=== PATIENT | female | born 1990 | race Caucasian/White ===

== ENCOUNTER 2019-10-14 05:55 | Inpatient (IN) ==
[2019-10-14] MEDS ORDERED: OXYTOCIN 30 UNITS/500 ML BAG IV PRN ×2 (06:40)
[2019-10-14] MEDS ORDERED: miSOPROStoL 50 MCG TAB PO PRN (06:42)
[2019-10-14 07:09] LABS: Hematocrit (blood only) 36.3 % (37-47); Hemoglobin 12.5 g/dL (12.0-16.0); Mean Corpuscular Hemoglobin 31.2 pg (25-34); Mean Corpuscular Volume 90.5 fL (80-100); Mean Platelet Volume 11.3 fL (7.4-10.4); Platelet Count 212 K/uL (130-400); RDW Coefficient of Variation 13.6 % (11.5-14.5); RDW Standard Deviation 45.1 fL (36.4-46.3); Red Blood Count 4.01 M/uL (4.2-5.4)
[2019-10-14 07:10] LABS: Mean Corpuscular Hgb Conc 34.4 g/dL (32-36)
--- NOTE | 2019-10-14 07:12 | History & Physical Report ---
Date of Service October 14, 2019 Assessment & Plan (1) Supervision of normal first : Yasmeen is a 29yo at 39w admitted to labor and delivery with SROM. - cervix not yet dilated; cytotec for cervical ripening - pitocin for contraction augmentation - anesthesia consult placed for epidural - anticipate vaginal delivery History of Present Illness Primary Care Provider: [facility] PCP at 39w 1d dated via LPM. She came to labor and delivery after SROM at 4:30AM today. Sterile speculum exam was performed upon arrival with + nitrazine and + ferning. No complications with this . Only medication is PNV. Has been attending OB appointments. + contractions. + movement. - vaginal bleeding. Labs Blood type: O - Antibody Screen: neg H.5 Hct: 36.3 Plt: 212 Rubella: immune VDRL/RPR: non reactive Gonorrhea: neg Chlamydia: neg GBS: neg HIV: neg HbsAq: neg Glucose Tolerance x2: normal Allergies Allergy/AdvReac Type Severity Reaction Status Date / Time Sulfa (Sulfonamide Allergy Unknown Verified 10/14/19 06:51 Antibiotics) SULFA Allergy Unknown Unknown Uncoded 10/14/19 06:51 Home Medications Home Medications Medication Instructions Recorded Confirmed Type prenat.vits,annika,szt-lnnu-bgufg 1 tab PO DAILY 06/15/19 10/14/19 History ferrous sulfate [iron] 325 mg PO DAILY 10/14/19 10/14/19 History Patient History Medical History Migraine Ovarian cyst Varicella Whooping cough Surgical History S/P tonsillectomy S/P wisdom tooth extraction Family History Grandmother (Paternal) Hypertension Grandmother (Maternal) Osteoporosis Thyroid disease Hudgins disease Mother Breast cancer Social History Preferred Language: Albanian Communication Ability: Effective Advice Nurse Required: No Beliefs That Will Affect Care: None marital status: marital status details: Prashant Bah (39) [phone] Current Living Situation: Spouse Current Living Situation Comment: dog current occupational status: employed 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[facility] [place] Other Information That Helps Us Care for You: No Feels Safe at Home: Yes Safety Concerns: Feels Safe At This Time Smoking Status: Never smoker Hx Alcohol Use: No Hx Substance Use: No Review of Systems no fever, no chills and no sweats no worsening vision no cough and no dyspnea no chest pain, no palpitations and no calf pain no nausea, no vomiting, no constipation and no diarrhea/loose stools no dysuria and no urinary frequency Physical Exam Constitutional: WD/WN, vitals as above Eyes: + anicteric sclerae Neck: normal visual inspection Respiratory: normal respiratory effort, lungs clear to auscultation does not use accessory muscles Auscultation: no crackles, no rales, no wheezes and no pleural rub Cardiovascular: Rate/Rhythm: regular rate and regular rhythm Heart Sounds: normal S1 and normal S2; no gallop, no murmur and no cardiac rub Gastrointestinal (Abdomen): Gravid. Uterus at term; + heart tones; vertex position. EFW 7-8 pounds Neurologic: awake; no focal motor deficits Psychiatric: A+Ox3, euthymic affect Genitourinary: OB Exam Monitor Tracing: + external FHT monitor used Cervical Exam: closed/ 50% effacement/ -2 station, soft and posterior Results & Data Vital Signs (Past 12 Hours) Vital Signs Temp Pulse Resp BP 10/14/19 06:17 36.6 C 90 18 122/84 10/14/19 06:11 36.6 C 90 18 122/84 Monitoring External Monitor Baseline HR: 130 bpm Variability: moderate Accelerations: +2 in in 20 minutes Decelerations: none Category I Tocodynamometer Contractions: occurring every 7-8 min Resident Activity Tracking Resident Involvement: Resident Care Provided Care Provided: OB Delivery
[2019-10-14] MEDS: LACTATED RINGER'S 1,000 ML IV PRN ×3 (08:20→16:39)
--- NOTE | 2019-10-14 11:42 | Labor Progress Brief Note ---
Date of Service October 14, 2019 Subjective Reason For Note: Routine Evaluation Tolerating Contractions Assessment & Plan (1) Premature rupture of membranes: Ready to begin pitocin. Epidural on request. PROM onset of labor timing: onset of labor within 24 hours of rupture PROM gestational age: full term Qualified Code(s): O42.02 - Full-term premature rupture of membranes, onset of labor within 24 hours of rupture Physical Exam Genitourinary: Manual OB Exam: + cervical dilation 1 cm, + cervical effacement 90%, + station -2 and + amniotic fluid clear OB Exam Monitor Tracing: + external FHT monitor used, + external uterine monitor used and + category I Results & Data Vital Signs (Past 12 Hours) Vital Signs Temp Pulse Resp BP 10/14/19 09:55 75 133/86 10/14/19 09:54 98.2 F 18 10/14/19 08:50 18 10/14/19 08:38 78 127/84 10/14/19 08:00 18 10/14/19 07:49 86 112/62 10/14/19 07:47 98.1 F 18 10/14/19 06:17 97.9 F 90 18 122/84 10/14/19 06:11 97.9 F 90 18 122/84 Coding Level of Care Code None Diagnoses Premature rupture of membranes O42.02 PROM onset of labor timing: onset of labor within 24 hours of rupture PROM gestational age: full term
[2019-10-14] MEDS ORDERED: fentaNYL citrate 100 MCG/2 ML VIAL ONE (12:06)
[2019-10-14] MEDS ORDERED: ePHEDrine sulfate 50 MG/ML AMP ONE (12:06)
[2019-10-14] MEDS ORDERED: BUPIVACAINE 0.25% 30 ML VIAL ONE (12:06)
[2019-10-14] MEDS ORDERED: fentaNYL 2MCG/ML ROPIV 1.25MG/ML 100 ML BAG EPI ONE (12:07)
--- NOTE | 2019-10-14 12:22 | Anesthesiology Consultation ---
Date of Service October 14, 2019 Assessment & Plan ASA ASA2 Proposed Anesthesia Anesthesia Type: Labor Epidural Risk / Benefits Reviewed With: PT / POA / Parent / Guardian, Accepts Plan and Informed Consent Obtained History Height/Weight Height: 5 ft 5 in Weight: 85.275 kg Allergies Allergy/AdvReac Type Severity Reaction Status Date / Time Sulfa (Sulfonamide Allergy Unknown Verified 10/14/19 06:51 Antibiotics) SULFA Allergy Unknown Unknown Uncoded 10/14/19 06:51 Medications Home Medications Medication Instructions Recorded Confirmed Last Taken prenat.vits,annika,gjy-yikg-erxhs 1 tab PO DAILY 06/15/19 10/14/19 10/13/19 ferrous sulfate [iron] 325 mg PO DAILY 10/14/19 10/14/19 10/13/19 Active Medications Generic Name Dose Route Start Last Admin Trade Name Freq PRN Reason Stop Dose Admin Lactated Ringer's 1,000 mls @ 125 mls/hr 10/14/19 06:40 10/14/19 11:50 Lr IV 10/16/19 06:39 999 mls/hr .Q8H PRN Infusion L&D Protocol Protocol Oxytocin 30 units in 500 mls @ 1 mls/hr 10/14/19 06:40 10/14/19 11:47 Pitocin IV 10/16/19 06:39 0.06 units/hr .Q24H PRN 1 mls/hr Labor Induction/Augmentation Administration Protocol 0.06 UNITS/HR Misoprostol 50 mcg 10/14/19 06:42 10/14/19 07:38 Cytotec PO 11/13/19 06:44 50 mcg Q4H PRN Administration contractions Past Medical History Medical History Migraine Ovarian cyst Varicella Whooping cough Exercise / Class Metabolic Activity II 4-5 Yardwork/Stairs/Walk up hill Past Family History Family History Grandmother (Paternal) Hypertension Grandmother (Maternal) Osteoporosis Thyroid disease Yoni disease Mother Breast cancer Past Surgical History Surgical History S/P tonsillectomy S/P wisdom tooth extraction Past Anesthesia History No Hx of Anesthesia Complications and No Family Hx of Anesthesia Complications History of PONV No Hx of PONV and No Hx of Motion Sickness Social History Smoking Status: Never smoker Hx Alcohol Use: No Hx Substance Use: No Review of Systems denies fever/cough/ colds/ chest pain/ SOB/ DESTINEE Constitutional: no fever and no chills Respiratory: no cough and no dyspnea denies DESTINEE Cardiovascular: no chest pain and no dyspnea on exertion Physical Exam Vital Signs Last Vital Signs Temp 36.8 C 10/14/19 09:54 Pulse 78 10/14/19 11:50 Resp 18 10/14/19 09:54 BP 117/70 10/14/19 11:50 ENMT Mouth: no TMJ abnormality and no dentition abnormality Thyromental Distance: > or= 3.5 Finger Breadths Mallampati Class: II Neck neck extension not limited Respiratory normal respiratory effort; no respiratory distress Auscultation: lungs clear to auscultation bilaterally Cardiovascular Rate/Rhythm: regular rate and regular rhythm Neurologic moves all extremities Psychiatric Orientation: alert and oriented x 3 Testing Laboratory Results 10/14/19 06:59
--- NOTE | 2019-10-14 13:48 | Labor Progress Brief Note ---
Date of Service October 14, 2019 Subjective Reason For Note: Routine Evaluation Comfortable with Epidural Assessment & Plan (1) Premature rupture of membranes: Comfortable with epidural. Contractions still Q3 at times, and irregular, so no exam currently as it would not casino change attendant. Continue titrating pitocin to Q2min. PROM onset of labor timing: onset of labor within 24 hours of rupture PROM gestational age: full term Qualified Code(s): O42.02 - Full-term premature rupture of membranes, onset of labor within 24 hours of rupture Physical Exam Genitourinary: OB Exam Monitor Tracing: + external uterine monitor used and + category I Results & Data Vital Signs (Past 12 Hours) Vital Signs Temp Pulse Resp BP Pulse Ox 10/14/19 13:46 74 100 10/14/19 13:41 75 100 10/14/19 13:36 72 100 10/14/19 13:33 62 109/66 10/14/19 13:31 75 100 10/14/19 13:26 78 100 10/14/19 13:21 83 99 10/14/19 13:17 68 103/66 10/14/19 13:16 73 99 10/14/19 13:12 80 107/65 10/14/19 13:11 74 99 10/14/19 13:08 68 97/59 L 10/14/19 13:06 70 96 10/14/19 13:05 18 10/14/19 13:01 75 116/56 L 99 10/14/19 13:00 70 18 106/52 L 10/14/19 12:58 73 114/53 L 10/14/19 12:56 72 107/51 L 99 10/14/19 12:55 18 10/14/19 12:54 107 H 133/79 10/14/19 12:52 76 117/71 10/14/19 12:51 78 18 100 10/14/19 12:49 63 18 104/51 L 10/14/19 12:47 77 18 112/51 L 10/14/19 12:46 67 100 10/14/19 12:45 64 110/57 L 10/14/19 12:42 97 H 107/75 10/14/19 12:41 88 100 10/14/19 12:40 105 H 162/82 H 10/14/19 12:36 71 100 10/14/19 12:34 69 122/82 10/14/19 12:31 83 100 10/14/19 12:26 74 100 10/14/19 12:21 77 100 10/14/19 11:50 78 117/70 10/14/19 09:55 75 133/86 10/14/19 09:54 98.2 F 18 10/14/19 08:50 18 10/14/19 08:38 78 127/84 10/14/19 08:00 18 10/14/19 07:49 86 112/62 10/14/19 07:47 98.1 F 18 10/14/19 06:17 97.9 F 90 18 122/84 10/14/19 06:11 97.9 F 90 18 122/84 Coding Level of Care Code None Diagnoses Premature rupture of membranes O42.02 PROM onset of labor timing: onset of labor within 24 hours of rupture PROM gestational age: full term
[2019-10-14] MEDS ORDERED: fentaNYL 2MCG/ML ROPIV 1.25MG/ML 100 ML BAG EPI PRN (13:56)
[2019-10-14] MEDS ORDERED: ONDANSETRON INJ 2 MG/ML 2 ML VIAL IV PRN (13:56)
[2019-10-14] MEDS ORDERED: NALBUPHINE HCL INJ 10 MG/ML AMP IV PRN (13:56)
[2019-10-14] MEDS ORDERED: DiphenhydrAMINE HCL 50 MG/ML VIAL IV PRN (13:56)
[2019-10-14] MEDS ORDERED: NALOXONE HCL 1 MG in SODIUM CHLORIDE 0.9% 1000ML 1,000 ML IV PRN (13:56)
[2019-10-14] MEDS ORDERED: NALOXONE HCL 0.4 MG/1 ML VIAL/CARP IV PRN (13:56)
[2019-10-14] MEDS ORDERED: ePHEDrine sulfate 50 MG/ML AMP IV PRN (13:56)
[2019-10-14] MEDS ORDERED: ACETAMINOPHEN 325 MG TAB PO STA (16:58)
--- NOTE | 2019-10-14 18:07 | Labor Progress Brief Note ---
Date of Service October 14, 2019 Subjective Comfortable with Epidural Physical Exam Genitourinary: Manual OB Exam: + cervical dilation 3 cm, + cervical effacement 90%, + station -2 and + amniotic fluid clear OB Exam Monitor Tracing: + external FHT monitor used, + external uterine monitor used and + category I Results & Data Vital Signs (Past 12 Hours) Vital Signs Temp Pulse Resp BP Pulse Ox 10/14/19 18:04 69 107/70 10/14/19 18:01 65 100 10/14/19 17:56 79 100 10/14/19 17:51 76 100 10/14/19 17:46 70 100 10/14/19 17:41 72 100 10/14/19 17:36 74 100 10/14/19 17:32 71 116/79 10/14/19 17:31 81 100 10/14/19 17:26 82 100 10/14/19 17:21 75 100 10/14/19 17:18 81 121/65 10/14/19 17:16 91 H 100 10/14/19 17:11 84 100 10/14/19 17:06 70 100 10/14/19 17:03 82 98/68 L 10/14/19 17:01 78 100 10/14/19 16:56 87 100 10/14/19 16:51 92 H 89 L 10/14/19 16:48 77 113/69 10/14/19 16:46 74 100 10/14/19 16:41 71 100 10/14/19 16:36 69 100 10/14/19 16:33 68 105/67 10/14/19 16:31 81 100 10/14/19 16:30 18 10/14/19 16:26 73 100 10/14/19 16:21 87 100 10/14/19 16:17 86 100/68 10/14/19 16:16 82 100 10/14/19 16:11 81 100 10/14/19 16:06 79 100 10/14/19 16:04 96 H 111/60 10/14/19 16:01 98 H 97 10/14/19 16:00 98.2 F 18 10/14/19 15:56 76 100 10/14/19 15:51 85 99 10/14/19 15:47 76 97/59 L 10/14/19 15:46 73 99 10/14/19 15:41 71 100 10/14/19 15:36 72 100 10/14/19 15:32 75 92/56 L 10/14/19 15:31 72 100 10/14/19 15:30 18 10/14/19 15:26 72 100 10/14/19 15:21 69 100 10/14/19 15:17 71 94/59 L 10/14/19 15:16 73 100 10/14/19 15:11 69 100 10/14/19 15:06 73 100 10/14/19 15:04 68 92/55 L 10/14/19 15:01 70 100 10/14/19 15:00 18 10/14/19 14:56 69 100 10/14/19 14:51 70 100 10/14/19 14:49 67 97/56 L 10/14/19 14:46 71 100 10/14/19 14:41 71 100 10/14/19 14:36 68 100 10/14/19 14:32 73 94/58 L 10/14/19 14:31 83 100 10/14/19 14:30 18 10/14/19 14:26 72 100 10/14/19 14:21 89 100 10/14/19 14:18 73 105/71 10/14/19 14:16 79 100 10/14/19 14:11 74 100 10/14/19 14:06 73 100 10/14/19 14:03 75 111/76 10/14/19 14:01 76 100 10/14/19 14:00 18 10/14/19 13:56 78 100 10/14/19 13:51 78 100 10/14/19 13:49 78 109/72 10/14/19 13:46 74 100 10/14/19 13:41 75 100 10/14/19 13:36 72 100 10/14/19 13:33 62 109/66 10/14/19 13:31 75 100 10/14/19 13:30 18 10/14/19 13:26 78 100 10/14/19 13:21 83 99 10/14/19 13:17 68 103/66 10/14/19 13:16 73 99 10/14/19 13:12 80 107/65 10/14/19 13:11 74 99 10/14/19 13:08 68 97/59 L 10/14/19 13:06 70 96 10/14/19 13:05 18 10/14/19 13:01 75 116/56 L 99 10/14/19 13:00 70 18 106/52 L 10/14/19 12:58 73 114/53 L 10/14/19 12:56 72 107/51 L 99 10/14/19 12:55 18 10/14/19 12:54 107 H 133/79 10/14/19 12:52 76 117/71 10/14/19 12:51 78 18 100 10/14/19 12:49 63 18 104/51 L 10/14/19 12:47 77 18 112/51 L 10/14/19 12:46 67 100 10/14/19 12:45 64 110/57 L 10/14/19 12:42 97 H 107/75 10/14/19 12:41 88 100 10/14/19 12:40 105 H 162/82 H 10/14/19 12:36 71 100 10/14/19 12:34 69 122/82 10/14/19 12:31 83 100 10/14/19 12:26 74 100 10/14/19 12:21 77 100 10/14/19 11:50 78 117/70 10/14/19 09:55 75 133/86 10/14/19 09:54 98.2 F 18 10/14/19 08:50 18 10/14/19 08:38 78 127/84 10/14/19 08:00 18 10/14/19 07:49 86 112/62 10/14/19 07:47 98.1 F 18 10/14/19 06:17 97.9 F 90 18 122/84 10/14/19 06:11 97.9 F 90 18 122/84 Coding Level of Care Code None
[2019-10-14] MEDS ORDERED: ROPIVACAINE 0.5% 5 MG/ML 30 ML VIAL ONE (18:32)
--- NOTE | 2019-10-14 19:41 | Anesthesiology Progress Note ---
Date of Service October 14, 2019 Subjective pt c/o pressure pain. 3/10. 5ml .5% ropivicaine bolus. pt comfortable Physical Exam Vital Signs: Last Vital Signs Temp 36.8 C 10/14/19 19:08 Pulse 79 10/14/19 19:36 Resp 18 10/14/19 19:08 BP 108/53 L 10/14/19 19:32 Pulse Ox 99 10/14/19 19:36 Results & Data Medications Administered Diphenhydramine HCl (Benadryl) 25 mg IV Q6H PRN PRN Reason: Itching Stop: 10/15/19 13:55 Last Admin: 10/14/19 14:18 Dose: 25 mg Documented by: Chandan Lactated Ringer's (Lr) 1,000 mls @ 125 mls/hr IV .Q8H PRN; Protocol PRN Reason: L&D Protocol Stop: 10/16/19 06:39 Last Admin: 10/14/19 16:39 Dose: 125 mls/hr Documented by: [id number] Infusion: 10/14/19 16:39 Dose: 0 mls/hr Documented by: [id number] Infusion: 10/14/19 13:10 Dose: 125 mls/hr Documented by: [id number] Infusion: 10/14/19 12:47 Dose: 999 mls/hr Documented by: [id number] Admin: 10/14/19 12:31 Dose: 125 mls/hr Documented by: [id number] Infusion: 10/14/19 12:30 Dose: 0 mls/hr Documented by: [id number] Infusion: 10/14/19 11:50 Dose: 999 mls/hr Documented by: [id number] Infusion: 10/14/19 11:40 Dose: 125 mls/hr Documented by: [id number] Infusion: 10/14/19 08:55 Dose: 0 mls/hr Documented by: [id number] Infusion: 10/14/19 08:38 Dose: 999 mls/hr Documented by: [id number] Admin: 10/14/19 08:20 Dose: 125 mls/hr Documented by: [id number] Oxytocin (Pitocin) 30 units in 500 mls @ 15 mls/hr IV .Q24H PRN; Protocol PRN Reason: Labor Induction/Augmentation Stop: 10/16/19 06:39 Last Titration: 10/14/19 18:35 Dose: 0.9 units/hr, 15 mls/hr Documented by: [id number] Titration: 10/14/19 18:02 Dose: 0.78 units/hr, 13 mls/hr Documented by: [id number] Titration: 10/14/19 15:45 Dose: 0.66 units/hr, 11 mls/hr Documented by: [id number] Titration: 10/14/19 15:05 Dose: 0.54 units/hr, 9 mls/hr Documented by: [id number] Titration: 10/14/19 14:34 Dose: 0.42 units/hr, 7 mls/hr Documented by: [id number] Titration: 10/14/19 14:02 Dose: 0.3 units/hr, 5 mls/hr Documented by: [id number] Titration: 10/14/19 13:16 Dose: 0.18 units/hr, 3 mls/hr Documented by: [id number] Admin: 10/14/19 11:47 Dose: 0.06 units/hr, 1 mls/hr Documented by: [id number] Cosigned by: [id number] Misoprostol (Cytotec) 50 mcg PO Q4H PRN PRN Reason: contractions Stop: 11/13/19 06:44 Last Admin: 10/14/19 07:38 Dose: 50 mcg Documented by: [id number] Nalbuphine HCl (Nubain) 5 mg IV Q10M PRN PRN Reason: itching or nausea Stop: 10/15/19 13:55 Last Admin: 10/14/19 17:17 Dose: 5 mg Documented by: [id number] Ropivacaine (Epidural (L&D)) 100 ml EPI PRN PRN; Protocol PRN Reason: Pain R/T Labor Stop: 10/15/19 13:55 Last Admin: 10/14/19 18:54 Dose: 100 ml Documented by: [id number] Cosigned by: [id number]
[2019-10-14] MEDS ORDERED: ACETAMINOPHEN 325 MG TAB PO PRN (21:40)
--- NOTE | 2019-10-14 23:10 | Labor Progress Brief Note ---
Date of Service October 14, 2019 Subjective Comfortable with Epidural Assessment & Plan (1) Premature rupture of membranes: Begin second stage. PROM onset of labor timing: onset of labor within 24 hours of rupture PROM gestational age: full term Qualified Code(s): O42.02 - Full-term premature rupture of membranes, onset of labor within 24 hours of rupture Physical Exam Genitourinary: Manual OB Exam: + cervical dilation 10 cm, + cervical effacement 100%, + station + 1 and + amniotic fluid clear OB Exam Monitor Tracing: + external uterine monitor used and + category I Results & Data Vital Signs (Past 12 Hours) Vital Signs Temp Pulse Resp BP Pulse Ox 10/14/19 23:06 88 100 10/14/19 23:03 94 H 116/77 10/14/19 23:01 89 100 10/14/19 22:56 84 100 10/14/19 22:51 91 H 100 10/14/19 22:49 97.9 F 85 18 109/75 10/14/19 22:46 79 100 10/14/19 22:41 88 100 10/14/19 22:36 93 H 99 10/14/19 22:33 103 H 100/67 10/14/19 22:31 82 100 10/14/19 22:26 93 H 100 10/14/19 22:21 78 100 10/14/19 22:18 85 104/72 10/14/19 22:16 84 100 10/14/19 22:11 89 100 10/14/19 22:06 94 H 100 10/14/19 22:05 88 90/67 L 10/14/19 22:04 88 89/54 L 10/14/19 22:03 77 20 109/71 10/14/19 22:01 85 100 10/14/19 21:56 99 H 100 10/14/19 21:51 97 H 100 10/14/19 21:48 84 112/71 10/14/19 21:46 91 H 100 10/14/19 21:41 88 100 10/14/19 21:36 93 H 100 10/14/19 21:34 78 113/70 10/14/19 21:31 91 H 100 10/14/19 21:26 84 100 10/14/19 21:21 86 100 10/14/19 21:18 83 113/64 10/14/19 21:16 85 99 01/31/20 21:11 91 H 100 10/14/19 21:06 83 100 10/14/19 21:01 98.4 F 84 20 100 10/14/19 20:56 88 100 10/14/19 20:51 85 98 10/14/19 20:48 79 96/59 L 10/14/19 20:46 76 99 10/14/19 20:41 75 98 10/14/19 20:36 72 99 10/14/19 20:33 102 H 97/55 L 10/14/19 20:31 84 97 10/14/19 20:26 78 99 10/14/19 20:21 76 98 10/14/19 20:19 71 98/56 L 10/14/19 20:16 73 98 10/14/19 20:11 76 98 10/14/19 20:06 70 98 10/14/19 20:04 71 18 97/54 L 10/14/19 20:01 71 98 10/14/19 19:56 74 98 10/14/19 19:51 76 98 10/14/19 19:49 72 98/55 L 10/14/19 19:46 74 98 10/14/19 19:41 74 98 10/14/19 19:36 79 99 10/14/19 19:32 83 108/53 L 10/14/19 19:31 88 100 10/14/19 19:27 72 114/65 10/14/19 19:26 72 100 10/14/19 19:23 67 107/60 10/14/19 19:21 79 99 10/14/19 19:17 80 103/67 10/14/19 19:16 80 99 10/14/19 19:12 72 102/64 10/14/19 19:11 67 100 10/14/19 19:08 98.2 F 70 18 104/61 10/14/19 19:06 74 100 10/14/19 19:02 81 105/64 10/14/19 19:01 79 100 10/14/19 19:00 18 10/14/19 18:57 74 108/72 10/14/19 18:56 75 99 10/14/19 18:53 78 116/65 10/14/19 18:51 76 98 10/14/19 18:46 66 104/65 99 10/14/19 18:44 65 106/67 10/14/19 18:42 68 106/67 10/14/19 18:41 68 99 10/14/19 18:40 86 111/72 10/14/19 18:38 67 106/67 10/14/19 18:36 80 99 10/14/19 18:33 72 107/64 10/14/19 18:31 78 99 10/14/19 18:26 71 99 10/14/19 18:21 66 99 10/14/19 18:18 77 110/65 10/14/19 18:16 72 99 10/14/19 18:11 64 100 10/14/19 18:06 84 100 10/14/19 18:04 69 107/70 10/14/19 18:01 65 100 10/14/19 18:00 18 10/14/19 17:56 79 100 10/14/19 17:51 76 100 10/14/19 17:46 70 100 10/14/19 17:41 72 100 10/14/19 17:36 74 100 10/14/19 17:32 71 116/79 10/14/19 17:31 81 100 10/14/19 17:30 18 10/14/19 17:26 82 100 10/14/19 17:21 75 100 10/14/19 17:18 81 121/65 10/14/19 17:16 91 H 100 10/14/19 17:11 84 100 10/14/19 17:06 70 100 10/14/19 17:03 82 98/68 L 10/14/19 17:01 78 100 10/14/19 17:00 18 10/14/19 16:56 87 100 10/14/19 16:51 92 H 89 L 10/14/19 16:48 77 113/69 10/14/19 16:46 74 100 10/14/19 16:41 71 100 10/14/19 16:36 69 100 10/14/19 16:33 68 105/67 10/14/19 16:31 81 100 10/14/19 16:30 18 10/14/19 16:26 73 100 10/14/19 16:21 87 100 10/14/19 16:17 86 100/68 10/14/19 16:16 82 100 10/14/19 16:11 81 100 10/14/19 16:06 79 100 10/14/19 16:04 96 H 111/60 10/14/19 16:01 98 H 97 10/14/19 16:00 98.2 F 18 10/14/19 15:56 76 100 10/14/19 15:51 85 99 10/14/19 15:47 76 97/59 L 10/14/19 15:46 73 99 10/14/19 15:41 71 100 10/14/19 15:36 72 100 10/14/19 15:32 75 92/56 L 10/14/19 15:31 72 100 10/14/19 15:30 18 10/14/19 15:26 72 100 10/14/19 15:21 69 100 10/14/19 15:17 71 94/59 L 10/14/19 15:16 73 100 10/14/19 15:11 69 100 10/14/19 15:06 73 100 10/14/19 15:04 68 92/55 L 10/14/19 15:01 70 100 10/14/19 15:00 18 10/14/19 14:56 69 100 10/14/19 14:51 70 100 10/14/19 14:49 67 97/56 L 10/14/19 14:46 71 100 10/14/19 14:41 71 100 10/14/19 14:36 68 100 10/14/19 14:32 73 94/58 L 10/14/19 14:31 83 100 10/14/19 14:30 18 10/14/19 14:26 72 100 10/14/19 14:21 89 100 10/14/19 14:18 73 105/71 10/14/19 14:16 79 100 10/14/19 14:11 74 100 10/14/19 14:06 73 100 10/14/19 14:03 75 111/76 10/14/19 14:01 76 100 10/14/19 14:00 18 10/14/19 13:56 78 100 10/14/19 13:51 78 100 10/14/19 13:49 78 109/72 10/14/19 13:46 74 100 10/14/19 13:41 75 100 10/14/19 13:36 72 100 10/14/19 13:33 62 109/66 10/14/19 13:31 75 100 10/14/19 13:30 18 10/14/19 13:26 78 100 10/14/19 13:21 83 99 10/14/19 13:17 68 103/66 10/14/19 13:16 73 99 10/14/19 13:12 80 107/65 10/14/19 13:11 74 99 10/14/19 13:08 68 97/59 L 10/14/19 13:06 70 96 10/14/19 13:05 18 10/14/19 13:01 75 116/56 L 99 10/14/19 13:00 70 18 106/52 L 10/14/19 12:58 73 114/53 L 10/14/19 12:56 72 107/51 L 99 10/14/19 12:55 18 10/14/19 12:54 107 H 133/79 10/14/19 12:52 76 117/71 10/14/19 12:51 78 18 100 10/14/19 12:49 63 18 104/51 L 10/14/19 12:47 77 18 112/51 L 10/14/19 12:46 67 100 10/14/19 12:45 64 110/57 L 10/14/19 12:42 97 H 107/75 10/14/19 12:41 88 100 10/14/19 12:40 105 H 162/82 H 10/14/19 12:36 71 100 10/14/19 12:34 69 122/82 10/14/19 12:31 83 100 10/14/19 12:26 74 100 10/14/19 12:21 77 100 10/14/19 11:50 78 117/70 Coding Level of Care Code None Diagnoses Premature rupture of membranes O42.02 PROM onset of labor timing: onset of labor within 24 hours of rupture PROM gestational age: full term
--- NOTE | 2019-10-15 00:22 | Delivery Summary ---
Vaginal Delivery Summary Date of Service October 15, 2019 Vaginal Delivery Summary DIAGNOSES: 1. Fortune intrauterine at 39w6d gestation. 2. PROM, IOL. 3. Group B Streptococcus Neg. PROCEDURE: Spontaneous vaginal delivery and repair of second degree laceration. SURGEON: Rosa Bedoya MD. FIELD SERVICES MANAGER: None. ESTIMATED BLOOD LOSS: 300 mL. COMPLICATIONS: None. PLACENTA: Spontaneous and intact with a 3-vessel cord. DISPOSITION: Stable to labor and delivery. DESCRIPTION: The patient pushed well and brought the head to in OA position. The 's head was allowed to deliver with contraction force and no further active pushing, with the perineum protected during this time. A double nuchal cord was reduced. The shoulders were slow to deliver, therefore [place] and Suprapubic Pressure from the posterior aspect of the shoulder were employed. The left shoulder was anterior. The shoulders and body then delivered, and the was placed on the maternal abdomen. The cord was doubly clamped by the MD and then cut by the FOB. The was taken to the warmer for resuscitation where cries were promptly heard, and infant was noted to move both arms spontaneously. The placenta delivered spontaneously and was noted to be intact and with a 3VC. The cervix, vagina and perineum were examined and were found to have a second degree perineal laceration which was repaired with vicryl in the usual manner, including crown sutures to rebuild the perineal body. The fundus was firm and lochia minimal immediately after delivery.
[2019-10-15] MEDS ORDERED: HYDROCORTISONE ACETATE 25 MG SUPP PR PRN (00:26)
[2019-10-15] MEDS ORDERED: BENZOCAINE 20% AER SPR 82.5 GM CAN EXT PRN (00:26)
[2019-10-15] MEDS ORDERED: SUPERCREAM 0.870% 15 GM JAR EXT PRN (00:26)
[2019-10-15] MEDS ORDERED: DIPHTHERIA/TETANUS/PERTUSSIS 0.5 ML SYR/VIAL IM ONE (00:26)
[2019-10-15] MEDS ORDERED: LACTATED RINGER'S 1,000 ML IV SCH (00:30)
[2019-10-15] MEDS: IBUPROFEN 600 MG TAB PO PRN ×5 (00:45→21:04)
--- NOTE | 2019-10-15 06:13 | Obstetrical Progress Note ---
Date of Service October 15, 2019 Assessment & Plan (1) Status post vaginal delivery: Yasmeen is a 29 yo at PPD 1 after at 39w - GBS -, Blood Type O-, Rubella immune - baby's blood type A+; will order Rhogam - continue self-void trials, straight cath as needed - Vitals reviewed and WNL Patient recovering normally. - After discharge will have [address] Bedoya. Supervising Physician Co-Signing Physician Notes I have reviewed the resident's note and examined the patient myself, and agree with the note above. Subjective Ambulation: ambulating normally Voiding: difficulty with voiding, required straight cath Passing Gas:: Yes Diet Tolerance:: regular diet Lochia:: moderate Feeding Type:: breast feeding Review of Systems Constitutional: no fever, no chills and no sweats Eyes: no worsening vision Respiratory: no cough and no dyspnea Cardiovascular: no chest pain, no palpitations, no edema and no calf pain Gastrointestinal: no nausea and no vomiting Genitourinary: no dysuria and no urinary frequency Neurologic: no headache(s) Physical Exam Constitutional: WD/WN, vitals as above no acute distress Respiratory: normal respiratory effort, lungs clear to auscultation does not use accessory muscles Auscultation: no crackles, no rales, no rhonchi, no wheezes and no pleural rub Cardiovascular: Rate/Rhythm: regular rate and regular rhythm Heart Sounds: normal S1 and normal S2; no gallop, no murmur and no cardiac rub Extremities: no calf tenderness and no pedal edema Gastrointestinal (Abdomen): Inspection/Auscultation: normal bowel sounds; abdomen not distended Percussion/Palpation: abdomen soft Genitourinary: Uterus: fundus firm, palpable 1 cm below the umbilicus Results & Data Vital Signs (Past 12 Hours) Vital Signs Temp Pulse Pulse Resp BP BP Pulse Ox 10/15/19 03:30 36.6 C 80 18 101/57 L 10/15/19 02:06 88 18 110/58 L 10/15/19 01:35 86 18 107/53 L 10/15/19 01:18 82 107/59 L 10/15/19 01:03 84 18 110/55 L 10/15/19 00:48 90 18 123/63 10/15/19 00:38 96 H 18 120/64 10/15/19 00:18 99 H 18 115/61 10/15/19 00:06 98 H 99 10/15/19 00:03 97 H 18 105/54 L 10/15/19 00:01 102 H 99 10/14/19 23:56 109 H 99 10/14/19 23:51 114 H 98 10/14/19 23:46 129 H 99 10/14/19 23:41 105 H 91 10/14/19 23:39 109 H 92 10/14/19 23:36 109 H 99 10/14/19 23:35 93 H 121/60 10/14/19 23:31 120 H 93 10/14/19 23:27 98 H 89 L 10/14/19 23:26 98 H 100 10/14/19 23:21 114 H 100 10/14/19 23:19 102 H 132/70 10/14/19 23:16 89 99 10/14/19 23:11 88 100 10/14/19 23:06 88 100 10/14/19 23:03 94 H 116/77 10/14/19 23:01 89 100 10/14/19 22:56 84 100 10/14/19 22:51 91 H 100 10/14/19 22:49 36.6 C 85 18 109/75 10/14/19 22:46 79 100 10/14/19 22:41 88 100 10/14/19 22:36 93 H 99 10/14/19 22:33 103 H 100/67 10/14/19 22:31 82 100 10/14/19 22:26 93 H 100 10/14/19 22:21 78 100 10/14/19 22:18 85 104/72 10/14/19 22:16 84 100 10/14/19 22:11 89 100 10/14/19 22:06 94 H 100 10/14/19 22:05 88 90/67 L 10/14/19 22:04 88 89/54 L 10/14/19 22:03 77 20 109/71 10/14/19 22:01 85 100 10/14/19 21:56 99 H 100 10/14/19 21:51 97 H 100 10/14/19 21:48 84 112/71 10/14/19 21:46 91 H 100 10/14/19 21:41 88 100 10/14/19 21:36 93 H 100 10/14/19 21:34 78 113/70 10/14/19 21:31 91 H 100 10/14/19 21:26 84 100 10/14/19 21:21 86 100 10/14/19 21:18 83 113/64 10/14/19 21:16 85 99 10/14/19 21:11 91 H 100 10/14/19 21:06 83 100 10/14/19 21:01 36.9 C 84 20 100 10/14/19 20:56 88 100 10/14/19 20:51 85 98 10/14/19 20:48 79 96/59 L 10/14/19 20:46 76 99 10/14/19 20:41 75 98 10/14/19 20:36 72 99 10/14/19 20:33 102 H 97/55 L 10/14/19 20:31 84 97 10/14/19 20:26 78 99 10/14/19 20:21 76 98 10/14/19 20:19 71 98/56 L 10/14/19 20:16 73 98 10/14/19 20:11 76 98 10/14/19 20:06 70 98 10/14/19 20:04 71 18 97/54 L 10/14/19 20:01 71 98 10/14/19 19:56 74 98 10/14/19 19:51 76 98 10/14/19 19:49 72 98/55 L 10/14/19 19:46 74 98 10/14/19 19:41 74 98 10/14/19 19:36 79 99 10/14/19 19:32 83 108/53 L 10/14/19 19:31 88 100 10/14/19 19:27 72 114/65 10/14/19 19:26 72 100 10/14/19 19:23 67 107/60 10/14/19 19:21 79 99 10/14/19 19:17 80 103/67 10/14/19 19:16 80 99 10/14/19 19:12 72 102/64 10/14/19 19:11 67 100 10/14/19 19:08 36.8 C 70 18 104/61 10/14/19 19:06 74 100 10/14/19 19:02 81 105/64 10/14/19 19:01 79 100 10/14/19 19:00 18 10/14/19 18:57 74 108/72 10/14/19 18:56 75 99 10/14/19 18:53 78 116/65 10/14/19 18:51 76 98 10/14/19 18:46 66 104/65 99 10/14/19 18:44 65 106/67 10/14/19 18:42 68 106/67 10/14/19 18:41 68 99 10/14/19 18:40 86 111/72 10/14/19 18:38 67 106/67 10/14/19 18:36 80 99 10/14/19 18:33 72 107/64 10/14/19 18:31 78 99 10/14/19 18:26 71 99 10/14/19 18:21 66 99 10/14/19 18:18 77 110/65 10/14/19 18:16 72 99 Resident Activity Tracking Resident Involvement: Resident Care Provided Care Provided: OB Delivery
--- NOTE | 2019-10-15 08:30 | Anesthesia Procedure Note ---
Date of Service October 15, 2019 Anesthesia Post Epidural Note Vital Signs Vital Signs: Temp Pulse Resp BP Pulse Ox 36.6 C 80 18 101/57 L 99 10/15/19 03:30 10/15/19 03:30 10/15/19 03:30 10/15/19 03:30 10/15/19 00:06 Pain Intensity Lower Abdomen: Pain Intensity: 0 Notes Mental Status: alert / awake / arousable Patient Amnestic to Procedure: Yes Nausea / Vomiting: adequately controlled Pain: adequately controlled Airway Patency, RR, SpO2: stable & adequate BP & HR: stable & adequate Hydration State: stable & adequate Neuraxial Anesthesia: sensory block resolved Anesthetic Complications: no major complications apparent and Pt Satisfied with anesthetic care Epidural: Removed without complications and With tip intact
[2019-10-15] MEDS: PRENATAL VITAMIN 1 TAB PO SCH (08:31)
[2019-10-15] MEDS: DOCUSATE SODIUM 100 MG CAP PO SCH ×2 (08:31→21:04)
[2019-10-15] MEDS: ACETAMINOPHEN 325 MG TAB PO PRN ×2 (08:32→17:40)
[2019-10-15] MEDS: OXYCODONE/ACETAMINOPHEN 5mg/325mg TAB PO PRN (23:18)
[2019-10-16] MEDS: OXYCODONE/ACETAMINOPHEN 5mg/325mg TAB PO PRN ×2 (05:35→14:39)
[2019-10-16 06:31] LABS: Hematocrit (blood only) 30.2 % (37-47); Hemoglobin 10.2 g/dL (12.0-16.0); Mean Corpuscular Hemoglobin 30.9 pg (25-34); Mean Corpuscular Hgb Conc 33.8 g/dL (32-36); Mean Corpuscular Volume 91.5 fL (80-100); Mean Platelet Volume 11.2 fL (7.4-10.4); Platelet Count 197 K/uL (130-400); RDW Standard Deviation 46.6 fL (36.4-46.3); White Blood Count 12.44 K/uL (4.8-10.8)
[2019-10-16] MEDS: DOCUSATE SODIUM 100 MG CAP PO SCH (08:40)
[2019-10-16] MEDS: PRENATAL VITAMIN 1 TAB PO SCH (08:40)
[2019-10-16] MEDS: IBUPROFEN 600 MG TAB PO PRN (08:43)
--- NOTE | 2019-10-16 10:02 | Obstetrical Progress Note ---
Date of Service October 16, 2019 Assessment & Plan (1) Status post vaginal delivery: stable, ready for d/c home, needs rhogam. breast feeding. instructions reviewed. f/u 6 wk pp check. Day #:: 2 Subjective Ambulation: ambulating normally Voiding: no voiding problems Diet Tolerance:: regular diet Lochia:: Small Feeding Type:: breast feeding reviewed hemorrhoid care. feeding. still needs rhogam eval and rhogam as baby rh positive. Physical Exam Constitutional WD/WN, vitals as above Respiratory normal respiratory effort, lungs clear to auscultation Cardiovascular Rate/Rhythm: regular rate and regular rhythm Gastrointestinal (Abdomen) Inspection/Auscultation: abdomen normal to inspection Percussion/Palpation: abdomen soft fundus firm 2 cm below umbilicus Musculoskeletal nt calves Neurologic grossly normal Psychiatric A+Ox3, euthymic affect Results & Data Vital Signs (Past 12 Hours) Vital Signs Temp Pulse Resp BP Pulse Ox 10/16/19 07:30 97.9 F 64 18 106/70 98 10/15/19 23:20 97.2 F L 75 15 116/77 97
== END 2019-10-16 15:40 | disposition home or self-care (01) | DRG 807 ==
LOC: OPB 05:55 → 4S1 05:58 → 4S2 10-15 03:31

== ENCOUNTER 2021-07-29 14:41 | Inpatient (IN) ==
[2021-07-30] MEDS ORDERED: OXYTOCIN 30 UNITS/500 ML BAG IV PRN ×2 (13:08)
[2021-07-30 13:30] LABS: Hemoglobin 12.2 g/dL (12.0-16.0); Mean Corpuscular Hemoglobin 31.9 pg (25-34); Mean Corpuscular Hgb Conc 33.9 g/dL (32-36); Mean Platelet Volume 10.3 fL (7.4-10.4); Platelet Count 196 K/uL (130-400); RDW Coefficient of Variation 13.9 % (11.5-14.5); RDW Standard Deviation 47.8 fL (36.4-46.3); Red Blood Count 3.83 M/uL (4.2-5.4); White Blood Count 9.19 K/uL (4.8-10.8)
--- NOTE | 2021-07-30 13:35 | History & Physical Report ---
Date of Service July 30, 2021 Assessment & Plan (1) Encounter for induction of labor: Plan: 30 yo post coming in for induction of labor, doing well. -Oxytocin and fluids ordered for patient. -Anaesthesia consulted for labor pain control. - vital signs reviewed and WNL. -Blood type O-, GBS -, Rubella Immune -hemoglobin 12.2 -Will continue to monitor patient vitals and heart rate monitor. Admission and Anticipated Discharge Date Admission Date: July 30, 2021 History of Present Illness Primary Care Provider: Maribell Banks MD 39 weeks 1 day confirmed via LMP. Here for induction of labor. No complications with this . Has been attending OB appointments regularly. Currently taking vitamins, sertraline 50mg daily, ferrous sulfate 325mg every other day, and Miralax 17g daily. Contractions: intermittent, not consistent enough to count for her. Fluid or Blood loss: none Movement: active Labs: - O- - Antibody screen: Negative - H.2 - Hct: 36.0 - WBC: 9.19 - Plt: 196 - Rubella: Immune - RPR: Nonreactive - Gonorrhea: Not detected - Chlamydia: Not detected - HIV: Negative - HbSAg: Negative - GBS: Negative - Glucose tolerance x2: 128, 97. Allergies Allergy/AdvReac Type Severity Reaction Status Date / Time Sulfa (Sulfonamide Allergy Unknown Verified 07/30/21 16:17 Antibiotics) TUNA Allergy Severe Anaphylaxis Uncoded 07/30/21 16:17 Home Medications Medication Instructions Recorded Confirmed Type breast pump #1 ea 06/27/21 07/29/21 Rx docusate sodium 50 mg capsule 50 mg PO DAILY 07/30/21 07/30/21 History ferrous sulfate 325 mg (65 mg 325 mg PO DAILY 07/30/21 07/30/21 History iron) tablet (Iron (ferrous sulfate)) prenat.vits,annika,[id number] 1 tab PO DAILY 07/30/21 07/30/21 History sertraline 50 mg tablet (Zoloft) 50 mg PO DAILY 07/30/21 07/30/21 History Patient History Medical History (Updated 07/30/21 @ 13:48 by Frantz Zimmerman DO) Migraine Ovarian cyst Premature rupture of membranes Supervision of normal first Varicella Whooping cough Surgical History History of surgery on arm S/P tonsillectomy S/P wisdom tooth extraction Status post vaginal delivery Family History Grandmother (Paternal) Hypertension Grandmother (Maternal) Osteoporosis Thyroid disease [place] disease Mother Breast cancer, Onset Age: 38 Grandfather (Paternal) Cancer Grandfather (Maternal) Cancer Father Glaucoma Denies family history of Ovarian cancer Prostate cancer Myocardial infarction Colorectal cancer Social History Smoking Status: Never smoker Second Hand Exposure: No; Hx Alcohol Use: No Hx Substance Use: No Preferred Language: [place]ian Communication Ability: Effective 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 Beliefs That Will Affect Care: None marital status: marital status details: Prashant Bah (41) [phone] Current Living Situation: Spouse Current Living Situation Comment: lives with spouse, child, and 1 dog current occupational status: unemployed current occupation: sub teacher [email or web address] Other Information That Helps Us Care for You: No Feels Safe at Home: Yes Safety Concerns: Feels Safe At This Time Childhood Exposure to Second-Hand Smoke: No Dental Care, Regularly: Yes Physical Activity Frequency: Does not Exercise Seatbelt Use: always Sunscreen Use: No Assistive Devices: None OB History Previous full term at 39 weeks and 5 days SROM without complications. Physical Exam Physical Exam: General: Alert, oriented. No acute distress. Cardiac: Regular rate and rhythm, no murmurs/rubs/gallops. Respiratory: Clear to auscultation bilaterally a/p, no wheezes/rales/rhonchi. No increased work of breathing. Symmetrical chest rise. No respiratory distress. Pelvic: Dilation 3cm; Effacement 50; Station -[address] Brown Lower Extremities: No lower extremity edema or swelling. No deep calf pain. Alyse's negative bilaterally Baseline: 140 Variability: moderate Accelerations: present Decelerations: not present Supervising Physician Co-Signing Physician Notes Resident Physician Supervision Note: I interviewed and examined the patient. Discussed with Dr. Zimmerman and agree with findings and plan as documented in the note. Any exceptions or clarifications are listed here: Presents for elective induction. Delivered with mild shoulder dystocia at her last for 8#10oz baby. Plan pit induction. arom when indicated. epidural on demand. anticipate . Did discuss would not instrument. Documented By: Helen Brown MD, FACOG Resident Activity Tracking Resident Involvement: Resident Care Provided Care Provided: OB Delivery
[2021-07-30] MEDS: LACTATED RINGER'S 1,000 ML IV PRN ×2 (14:25→19:42)
[2021-07-30] MEDS ORDERED: ePHEDrine sulfate 50 MG/ML AMP ONE (19:12)
[2021-07-30] MEDS ORDERED: SODIUM CHLORIDE 0.9% INJ 10 ML VIAL ONE (19:13)
[2021-07-30] MEDS ORDERED: fentaNYL citrate 100 MCG/2 ML VIAL ONE (19:13)
[2021-07-30] MEDS ORDERED: BUPIVACAINE 0.25% 30 ML VIAL ONE (19:13)
[2021-07-30] MEDS ORDERED: fentaNYL 2MCG/ML ROPIVACAINE 1.25MG/ML 100 ML BAG EPI ONE (19:15)
[2021-07-30] MEDS ORDERED: ePHEDrine sulfate 50 MG/ML AMP IV PRN (19:26)
[2021-07-30] MEDS ORDERED: NALBUPHINE HCL INJ 10 MG/ML AMP IV PRN (19:26)
[2021-07-30] MEDS ORDERED: fentaNYL 2MCG/ML ROPIVACAINE 1.25MG/ML 100 ML BAG EPI PRN (19:26)
[2021-07-30] MEDS ORDERED: diphenhydrAMINE 50 MG/ML VIAL IV PRN (19:26)
[2021-07-30] MEDS ORDERED: ONDANSETRON INJ 2 MG/ML 2 ML VIAL IV PRN (19:26)
[2021-07-30] MEDS ORDERED: NALOXONE HCL 0.4 MG/1 ML VIAL/CARP IV PRN (19:26)
[2021-07-30] MEDS ORDERED: NALOXONE HCL 1 MG in SODIUM CHLORIDE 0.9% 1000ML 1,000 ML IV PRN (19:26)
--- NOTE | 2021-07-30 19:27 | Anesthesiology Consultation ---
Date of Service July 30, 2021 Assessment & Plan ASA ASA2 Proposed Anesthesia Anesthesia Type: Labor Epidural Risk / Benefits Reviewed With: PT / POA / Parent / Guardian, Accepts Plan and Informed Consent Obtained History Height/Weight Height: 5 ft 5 in Weight: 82.1 kg Allergies Allergy/AdvReac Type Severity Reaction Status Date / Time Sulfa (Sulfonamide Allergy Unknown Verified 07/30/21 16:17 Antibiotics) TUNA Allergy Severe Anaphylaxis Uncoded 07/30/21 16:17 Medications Home Medications Medication Instructions Recorded Confirmed Last Taken breast pump #1 ea 06/27/21 07/29/21 Unknown docusate sodium 50 mg capsule 50 mg PO DAILY 07/30/21 07/30/21 07/29/21 20:00 ferrous sulfate 325 mg (65 mg 325 mg PO DAILY 07/30/21 07/30/21 07/29/21 20:00 iron) tablet (Iron (ferrous sulfate)) prenat.vits,annika,[id number]-pqvnw 1 tab PO DAILY 07/30/21 07/30/21 07/29/21 20:00 sertraline 50 mg tablet (Zoloft) 50 mg PO DAILY 07/30/21 07/30/21 07/30/21 08:00 Active Medications Generic Name Dose Route Start Last Admin Trade Name Freq PRN Reason Stop Dose Admin Oxytocin 30 units in 500 mls @ 13 mls/hr 07/30/21 13:08 07/30/21 18:40 Pitocin IV 08/01/21 13:07 0.78 units/hr .Q24H PRN 13 mls/hr Labor Induction/Augmentation Titration Protocol 0.78 UNITS/HR Lactated Ringer's 1,000 mls @ 125 mls/hr 07/30/21 13:08 07/30/21 19:42 Lr IV 08/01/21 13:07 999 mls/hr .Q8H PRN Administration L&D Protocol Protocol Ropivacaine 100 ml 07/30/21 19:26 07/30/21 19:51 Fentanyl 2mcg/Ml Ropivacaine 1.25mg/Ml 100 Ml Bag EPI 07/31/21 19:25 100 ml PRN PRN Administration Pain R/T Labor Protocol Past Medical History Medical History (Updated 07/30/21 @ 13:48 by Frantz Zimmerman DO) Migraine Ovarian cyst Premature rupture of membranes Supervision of normal first Varicella Whooping cough Exercise / Class Metabolic Activity II 4-5 Yardwork/Stairs/Walk up hill Past Family History Family History Grandmother (Paternal) Hypertension Grandmother (Maternal) Osteoporosis Thyroid disease [place] disease Mother Breast cancer, Onset Age: 38 Grandfather (Paternal) Cancer Grandfather (Maternal) Cancer Father Glaucoma Denies family history of Ovarian cancer Prostate cancer Myocardial infarction Colorectal cancer Past Surgical History Surgical History History of surgery on arm S/P tonsillectomy S/P wisdom tooth extraction Status post vaginal delivery Past Anesthesia History No Hx of Anesthesia Complications and No Family Hx of Anesthesia Complications History of PONV No Hx of PONV and No Hx of Motion Sickness Social History Smoking Status: Never smoker Hx Alcohol Use: No Hx Substance Use: No Review of Systems denies fever/cough/ colds/ chest pain/ SOB/ DESTINEE denies DESTINEE Physical Exam Vital Signs Last Vital Signs Temp 36.7 C 07/30/21 19:36 Pulse 93 H 07/30/21 20:08 Resp 18 07/30/21 19:36 BP 82/49 L 07/30/21 20:08 Pulse Ox 99 07/30/21 20:04 ENMT Mouth: no TMJ abnormality and no dentition abnormality Thyromental Distance: > or= 3.5 Finger Breadths Mallampati Class: II Neck neck extension not limited Respiratory normal respiratory effort; no respiratory distress Auscultation: lungs clear to auscultation bilaterally Cardiovascular Rate/Rhythm: regular rate and regular rhythm Neurologic moves all extremities Psychiatric Orientation: alert and oriented x 3 Testing Laboratory Results 07/30/21 13:14
--- NOTE | 2021-07-30 20:33 | Labor Progress Brief Note ---
Date of Service July 30, 2021 Subjective comfortable after epidural Assessment & Plan (1) Encounter for induction of labor: Plan: continue current management. fetus category one. anticipate . Admission and Anticipated Discharge Date Admission Date: July 30, 2021 Physical Exam Physical Exam: cx--4-5/75/-2 arom--clear toco--q3-5, pit at 13 efm--140s wtih mod variability, accels to 160s, no decels Results & Data ([place]) Vital Signs (Past 12 Hours) Vital Signs Temp Pulse Resp BP Pulse Ox 07/30/21 20:29 83 129/63 98 07/30/21 20:27 75 107/67 07/30/21 20:25 97 H 113/68 90 07/30/21 20:24 89 98 07/30/21 20:23 78 110/71 07/30/21 20:21 72 116/69 07/30/21 20:19 91 H 121/70 98 07/30/21 20:17 75 111/66 07/30/21 20:14 69 97/64 L 99 07/30/21 20:13 81 85/55 L 07/30/21 20:12 106 H 75/39 L 07/30/21 20:11 98 H 79/42 L 07/30/21 20:10 85 86/54 L 07/30/21 20:09 88 96 07/30/21 20:08 93 H 82/49 L 07/30/21 20:04 87 99 07/30/21 20:02 83 111/67 07/30/21 20:00 85 113/66 07/30/21 19:59 91 H 99 07/30/21 19:58 82 112/65 07/30/21 19:56 79 112/65 07/30/21 19:54 81 114/66 99 07/30/21 19:52 82 115/64 07/30/21 19:50 90 114/59 L 07/30/21 19:49 93 H 100 07/30/21 19:48 74 117/68 07/30/21 19:47 80 118/65 07/30/21 19:44 85 100 07/30/21 19:39 85 100 07/30/21 19:36 36.7 C 18 07/30/21 19:34 82 99 07/30/21 19:29 76 99 07/30/21 19:24 82 99 07/30/21 19:19 78 100 07/30/21 18:07 36.9 C 77 20 108/67 07/30/21 16:07 80 116/66 07/30/21 14:41 36.9 C 20 07/30/21 13:41 87 116/72 Coding Level of Care Code None Diagnoses Encounter for induction of labor Z34.90
--- NOTE | 2021-07-31 00:18 | Delivery Summary ---
Vaginal Delivery Summary Date of Service July 31, 2021 Vaginal Delivery Summary and 2nd Degree LAC Pre-operative Diagnosis: at 39 2/7 weeks hx of shoulder dystocia in previous Post-operative Diagnosis: same Procedure: pitocin induction epidural arom second degree laceration and repair EBL: 400cc Anesthesia: epidural Procedure: Patient presents to labor and delivery for elective induction because last complicated by shoulder dystocia. She was admitted under went pit induction, epidural and arom for clear fluid. She progressed to c/c/+2. The patient pushed for 2 contractions to deliver a viable female infant in glenn position. A nuchal cord x 1 was easily reduced and the anterior shoulder was immediately delivered easily and the rest of the infant was then delivered without difficulty. The baby was vigorous. The nose and mouth were again bulb suctioned and the infant was placed in the maternal abdomen for drying and attention. Cord was clamped and cut at 2 minutes of life. Cord blood and segment obtained. Placenta delivered spontaneous, intact with a three vessel cord. Cervix/sulci/rectum were intact. A second degree perineal laceration was repaired in the normal standard fashion. Hemostasis obtained with dilute pitocin and fundal massage. Apgars were 8/9. Mother and baby doing well at the end of the delivery. [facility] Vaginal Delivery Charge Delivery Type Details: and 2nd Degree LAC
[2021-07-31] MEDS ORDERED: bisacodyL 10 MG SUPP PR PRN (00:19)
[2021-07-31] MEDS ORDERED: BENZOCAINE 20% AER SPR 82.5 GM CAN EXT PRN (00:19)
[2021-07-31] MEDS ORDERED: HYDROCORTISONE ACETATE 25 MG SUPP PR PRN (00:19)
[2021-07-31] MEDS ORDERED: DIPHTHERIA/TETANUS/PERTUSSIS 0.5 ML SYR/VIAL IM ONE (00:19)
[2021-07-31] MEDS ORDERED: OXYTOCIN 30 UNITS/500 ML BAG IV PRN (00:19)
[2021-07-31] MEDS: SUPERCREAM 0.870% 15 GM JAR EXT PRN (02:17)
[2021-07-31] MEDS: IBUPROFEN 600 MG TAB PO PRN ×5 (03:41→20:54)
--- NOTE | 2021-07-31 07:22 | Anesthesia Procedure Note ---
Date of Service July 31, 2021 Anesthesia Post Epidural Note Vital Signs Vital Signs: Temp Pulse Resp BP Pulse Ox 36.4 C L 82 16 106/69 100 07/31/21 03:35 07/31/21 03:35 07/31/21 03:35 07/31/21 03:35 07/31/21 00:06 Pain Intensity Abdomen: Pain Intensity: 5 Notes Mental Status: alert / awake / arousable and participated in evaluation Nausea / Vomiting: adequately controlled Pain: adequately controlled Airway Patency, RR, SpO2: stable & adequate BP & HR: stable & adequate Hydration State: stable & adequate Neuraxial Anesthesia: was administered and sensory block is resolving Anesthetic Complications: no major complications apparent Epidural: Removed without complications and With tip intact
--- NOTE | 2021-07-31 07:24 | Obstetrical Progress Note ---
Date of Service July 31, 2021 Assessment & Plan (1) Encounter for assessment: Doing well. Routine care. Rh-. Day #:: 0 Subjective Ambulation: ambulating normally Voiding: voiding difficulty (needed to be straight cathed last night. Had issues with voiding after her last delivery) Passing Gas:: Yes Diet Tolerance:: regular diet Lochia:: Small Feeding Type:: breast feeding Physical Exam Constitutional WD/WN, vitals as above Cardiovascular Extremities: no calf tenderness and no edema Gastrointestinal (Abdomen) soft, nt, nd, ff/nt at u Results & Data ([place]) Vital Signs (Past 12 Hours) Vital Signs Temp Pulse Pulse Resp BP BP Pulse Ox 07/31/21 03:35 36.4 C L 82 16 106/69 07/31/21 02:30 18 07/31/21 02:19 85 106/64 07/31/21 02:15 36.7 C 18 07/31/21 02:04 81 108/62 07/31/21 01:49 81 113/62 07/31/21 01:45 18 07/31/21 01:34 78 110/59 L 07/31/21 01:20 77 113/64 07/31/21 01:15 18 07/31/21 01:08 75 113/62 07/31/21 01:00 18 07/31/21 00:49 73 108/70 07/31/21 00:45 18 07/31/21 00:35 72 102/60 07/31/21 00:30 18 07/31/21 00:20 80 111/61 07/31/21 00:15 36.6 C 18 07/31/21 00:14 86 120/71 07/31/21 00:06 76 100 07/31/21 00:04 78 110/61 07/31/21 00:01 76 100 07/31/21 00:00 84 92 07/30/21 23:56 87 100 07/30/21 23:55 82 89 L 07/30/21 23:51 92 H 100 07/30/21 23:50 75 116/71 07/30/21 23:46 77 100 07/30/21 23:41 75 99 07/30/21 23:36 82 99 07/30/21 23:35 79 124/60 90 07/30/21 23:31 80 100 07/30/21 23:26 93 H 100 07/30/21 23:21 89 109/56 L 100 07/30/21 23:20 90 18 90 07/30/21 23:16 86 100 07/30/21 23:11 94 H 99 07/30/21 23:06 76 98 07/30/21 23:05 76 97/57 L 07/30/21 23:01 77 97 07/30/21 22:56 74 97 07/30/21 22:51 77 96 07/30/21 22:50 73 99/57 L 07/30/21 22:46 76 97 07/30/21 22:41 73 97 07/30/21 22:38 18 07/30/21 22:36 85 98 07/30/21 22:35 78 105/61 07/30/21 22:31 83 96 07/30/21 22:26 76 97 07/30/21 22:21 82 95 07/30/21 22:19 77 102/65 07/30/21 22:16 80 97 07/30/21 22:11 77 96 07/30/21 22:10 36.9 C 18 07/30/21 22:06 85 101/62 98 07/30/21 22:01 18 07/30/21 22:00 77 97 07/30/21 21:58 81 94 07/30/21 21:55 88 97 07/30/21 21:50 83 102/64 96 07/30/21 21:46 84 94 07/30/21 21:45 87 96 07/30/21 21:40 82 96 07/30/21 21:39 83 94 07/30/21 21:36 85 100/59 L 07/30/21 21:35 83 96 07/30/21 21:30 92 H 97 07/30/21 21:25 83 96 07/30/21 21:20 88 100/62 95 07/30/21 21:15 88 95 07/30/21 21:10 84 95 07/30/21 21:05 107 H 91/53 L 98 07/30/21 21:00 88 97 07/30/21 20:59 91 H 94 07/30/21 20:55 90 96 07/30/21 20:51 86 106/60 07/30/21 20:50 96 H 109/66 98 07/30/21 20:44 94 H 98 07/30/21 20:39 82 99 07/30/21 20:34 83 99 07/30/21 20:33 90 116/60 07/30/21 20:31 82 120/58 L 07/30/21 20:30 18 07/30/21 20:29 83 129/63 98 07/30/21 20:28 36.6 C 18 07/30/21 20:27 75 107/67 07/30/21 20:25 97 H 113/68 90 07/30/21 20:24 89 98 07/30/21 20:23 78 110/71 07/30/21 20:21 72 116/69 07/30/21 20:19 91 H 121/70 98 07/30/21 20:17 75 111/66 07/30/21 20:15 18 07/30/21 20:14 69 97/64 L 99 07/30/21 20:13 81 85/55 L 07/30/21 20:12 106 H 75/39 L 07/30/21 20:11 98 H 79/42 L 07/30/21 20:10 85 18 86/54 L 07/30/21 20:09 88 96 07/30/21 20:08 93 H 82/49 L 07/30/21 20:05 18 07/30/21 20:04 87 99 07/30/21 20:02 83 111/67 07/30/21 20:00 85 18 113/66 07/30/21 19:59 91 H 99 07/30/21 19:58 82 112/65 07/30/21 19:56 79 112/65 07/30/21 19:55 18 07/30/21 19:54 81 114/66 99 07/30/21 19:52 82 115/64 07/30/21 19:50 90 18 114/59 L 07/30/21 19:49 93 H 100 07/30/21 19:48 74 117/68 07/30/21 19:47 80 118/65 07/30/21 19:45 18 07/30/21 19:44 85 100 07/30/21 19:40 18 07/30/21 19:39 85 100 07/30/21 19:36 36.7 C 18 07/30/21 19:34 82 99 07/30/21 19:29 76 99 07/30/21 19:24 82 99
[2021-07-31] MEDS: PRENATAL VITAMIN 1 TAB PO SCH (08:18)
[2021-07-31] MEDS: DOCUSATE SODIUM 100 MG CAP PO SCH ×2 (08:19→19:46)
[2021-07-31] MEDS: SERTRALINE HCL 50 MG TABLET PO SCH (08:19)
[2021-07-31] MEDS: oxyCODONE/ACETAMINOPHEN 5mg/325mg TAB PO PRN ×3 (09:59→22:14)
[2021-07-31] MEDS: ACETAMINOPHEN 325 MG TAB PO PRN (18:17)
[2021-08-01] MEDS: IBUPROFEN 600 MG TAB PO PRN ×3 (00:29→09:21)
--- NOTE | 2021-08-01 07:02 | Obstetrical Progress Note ---
Date of Service August 01, 2021 Assessment & Plan (1) Encounter for assessment: no ext pain, well, home Subjective Ambulation: ambulating normally Voiding: no voiding problems Passing Gas:: Yes Diet Tolerance:: regular diet Lochia:: Small Current Pain Level(1-10): 0 Results & Data ([facility]) Vital Signs (Past 12 Hours) Vital Signs Temp Pulse Resp BP Pulse Ox 08/01/21 00:25 98.1 F 80 18 100/66 07/31/21 19:40 97.9 F 78 18 107/59 L 99
[2021-08-01] MEDS: SUPERCREAM 0.870% 15 GM JAR EXT PRN (09:20)
[2021-08-01] MEDS: PRENATAL VITAMIN 1 TAB PO SCH (09:21)
[2021-08-01] MEDS: DOCUSATE SODIUM 100 MG CAP PO SCH (09:21)
[2021-08-01] MEDS: SERTRALINE HCL 50 MG TABLET PO SCH (09:30)
[2021-08-01] MEDS: ACETAMINOPHEN 325 MG TAB PO PRN (11:00)
[2021-08-01] MEDS ORDERED: bisacodyL 5 MG TABEC PO SCH (20:00)
== END 2021-08-01 12:45 | disposition home or self-care (01) | DRG 807 ==
LOC: 4S1 07-30 12:44 → 4S2 07-31 03:11